=== PATIENT | male | born 2000 | race American Indian/Alaskan Native ===

== ENCOUNTER 2019-10-29 17:13 | Emergency (ER) | payer SELFPAY ==
[~2019-10-29 17:13] MED LIST: EPINEPHrine 1:10,000 1 MG/10 ML SYRINGE ONE; SODIUM BICARB 8.4% 50 MEQ/50 ML SYRINGE IV ONE
[2019-10-29] MEDS ORDERED: SODIUM CHLORIDE 0.9% 1000 ML 2,000 ML ONE (17:33)
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
== END 2019-10-29 19:13 ==
LOC: ED 17:13
DX: I46.8 Cardiac arrest due to other underlying condition (principal)
CPT/HCPCS: 31500; 32551; 36556; 92950; 99291; J0171; J7030